=== PATIENT | female | born 1985 | race American Indian/Alaskan Native ===

== ENCOUNTER 2017-10-21 21:21 | Emergency (ER) | payer OTHER ==
[2017-10-21] MEDS ORDERED: TYLENOL PO STA (21:34)
[2017-10-21] MEDS ORDERED: NACL 0.9% 500 ML 500 ML IV ONE (21:34)
[2017-10-21] MEDS ORDERED: TYLENOL ONE (21:44)
[2017-10-21 21:49] LABS: Basophils # (Auto) 0.1 K/mm3 (0.0-0.1); Basophils % (Auto) 0.7 % (0.0-1.8); Eosinophils # (Auto) 0.1 K/mm3 (0.0-0.4); Hemoglobin 12.6 gm/dl (10.1-14.3); Lymphocytes # (Auto) 1.2 K/mm3 (1.2-5.4); Lymphocytes % (Auto) 11.8 % (13.4-35.0); Mean Corpuscular HGB Conc 33 % (30-34); Mean Corpuscular Hemoglobin 30 pg (28-32); Mean Corpuscular Volume 89 fl (79-97); Monocytes # (Auto) 0.8 K/mm3 (0.0-0.8); Monocytes % (Auto) 7.5 % (0.0-7.3); Platelet Count 219 K/mm3 (140-440); Red Blood Count 4.29 M/mm3 (3.65-5.03); Red Cell Distribution Width 14.4 % (13.2-15.2)
[2017-10-21] MEDS ORDERED: NACL 0.9% 1000 ML 1,000 ML ONE (21:53)
[2017-10-21] MEDS ORDERED: NACL 0.9% 1000 ML 1,000 ML IV ONE (21:59)
[2017-10-21 22:01] LABS: INR 1.05 (0.87-1.13)
[2017-10-21 22:05] LABS: Alanine Aminotransferase 17 units/L (7-56); Albumin 4.2 g/dL (3.9-5); BUN/Creatinine Ratio 9; Blood Urea Nitrogen 6 mg/dL (7-17); Calcium 9.3 mg/dL (8.4-10.2); Hemolysis Index 15
--- NOTE | 2017-10-21 22:14 | XRay Report ---
FINAL REPORT PROCEDURE: Chest. TECHNIQUE: Frontal and lateral views. HISTORY: Possible sepsis. COMPARISON: No prior studies are available for comparison. FINDINGS: The heart and mediastinum appear normal. The lungs are clear and well expanded. There are no pleural effusions. The soft tissues and regional skeleton are unremarkable. IMPRESSION: Normal study.
[2017-10-21 23:00] LABS: Bacteria,Urine 2+ /HPF (Negative); Bilirubin,Urine NEG (Negative); Blood,Urine NEG (Negative); Color,Urine Yellow (Yellow); Mucus,Urine FEW /HPF; Nitrite,Urine NEG (Negative); Urobilinogen,Urine < 2.0 mg/dL (<2.0)
[2017-10-22] MEDS ORDERED: MOTRIN PO ONE (01:26)
[2017-10-22] MEDS ORDERED: LEVAQUIN PO ONE (02:23)
--- NOTE | 2017-10-22 02:27 | Emergency Department Report ---
ED Fever HPI - General Chief Complaint: Fever Stated Complaint: FEVER Time Seen by Provider: 10/22/17 01:42 Source: patient Exam Limitations: no limitations - History of Present Illness Initial Comments: 32 YO FEMALE WITH FEVER, BODYACHES, EARACHE ,COUGH SINCE YESTERDAY. SHE ALSO HAD DIARRHEA LAST NIGHT AND MILD SORE THROAT. PT HAS A FEVER OF 102.9 TODAY Timing/Duration: yesterday Fever Severity/Quality: greater than 102 F Fever Therapy VISION CARE ASSOCIATE: none Associated Symptoms: cough, muscle aches, sore throat. denies: abdominal pain, headache, nausea/vomiting, stiff neck, syncope, weakness ED Review of Systems ROS: Stated complaint: FEVER Other details as noted in HPI Eyes: denies: eye pain, eye discharge, vision change ENT: denies: ear pain, throat pain Respiratory: cough. denies: shortness of breath, wheezing Cardiovascular: denies: chest pain, palpitations Endocrine: no symptoms reported Gastrointestinal: diarrhea. denies: abdominal pain, nausea, vomiting Genitourinary: denies: urgency, dysuria, discharge Musculoskeletal: denies: back pain, joint swelling, arthralgia Skin: denies: rash, lesions Neurological: denies: headache, weakness, paresthesias Psychiatric: denies: anxiety, depression Hematological/Lymphatic: denies: easy bleeding, easy bruising ED Past Medical Hx - Past Medical History Previous Medical History?: Yes - Surgical History Past Surgical History?: Yes Additional Surgical History: Tubal logation 2005 - Family History Family history: hypertension - Social History Smoking Status: Never Smoker - Medications Home Medications: Home Medications Medication Instructions Recorded Confirmed Last Taken Type Ibuprofen [Motrin] 800 mg PO Q8HR PRN #20 tablet 10/22/17 Unknown Rx Nitrofurantoin Macrocrysta(Nf) 100 mg PO BID #10 capsule 10/22/17 Unknown Rx [Macrodantin CAP] Oseltamivir [Tamiflu] 75 mg PO BID #10 capsule 10/22/17 Unknown Rx ED Physical Exam - General Limitations: No Limitations General appearance: alert, in no apparent distress - Head Head exam: Present: atraumatic, normocephalic - Eye Eye exam: Present: normal appearance, EOMI - ENT ENT exam: Present: mucous membranes moist - Expanded ENT Exam Expanded TM/Canal exam: Cerumen Impaction: Right TM - Neck Neck exam: Present: normal inspection, full ROM - Respiratory Respiratory exam: Present: normal lung sounds bilaterally. Absent: respiratory distress - Cardiovascular Cardiovascular Exam: Present: regular rate, normal rhythm. Absent: systolic murmur, diastolic murmur, rubs, gallop - GI/Abdominal GI/Abdominal exam: Present: soft, normal bowel sounds - Extremities Exam Extremities exam: Present: normal inspection - Back Exam Back exam: Present: normal inspection - Neurological Exam Neurological exam: Present: alert, oriented X3 - Psychiatric Psychiatric exam: Present: normal affect, normal mood - Skin Skin exam: Present: warm, dry, intact, normal color. Absent: rash ED Course Vital Signs 10/21/17 10/21/17 10/21/17 21:30 21:58 22:58 Temperature 102.9 F H Pulse Rate 130 H Respiratory 20 20 20 Rate Blood Pressure 148/97 O2 Sat by Pulse 99 Oximetry ED Medical Decision Making - Lab Data Result diagrams: 10/21/17 21:37 10/21/17 21:37 Critical care attestation.: If time is entered above; I have spent that time in minutes in the direct care of this critically ill patient, excluding procedure time. ED Disposition Clinical Impression: Influenza Fever Qualifiers: Fever type: unspecified Qualified Code(s): R50.9 - Fever, unspecified UTI (urinary tract infection) Qualifiers: Urinary tract infection type: acute cystitis Hematuria presence: with hematuria Qualified Code(s): N30.01 - Acute cystitis with hematuria Disposition: - TO HOME OR SELFCARE Is pt being admited?: No Does the pt Need Aspirin: No Condition: Stable Instructions: Urinary Tract Infection in Women (ED), Cerumen Impaction (ED), Influenza (ED) Additional Instructions: PLEASE FOLLOW UP WITH DR SIMON GARSIA CALL [phone] ISAI RUSSELL [phone] ABOUT YOUR EAR. PLEASE RETURN TO THE ER IF YOUR SYMPTOMS GET WORSE OR NAUSEA,VOMITING, SEVERE HEADACHE OR FOR ANY CONCERNS Prescriptions: Ibuprofen [Motrin] 800 mg PO Q8HR PRN #20 tablet PRN Reason: Fever Nitrofurantoin Macrocrysta(Nf) [Macrodantin CAP] 100 mg PO BID #10 capsule Oseltamivir [Tamiflu] 75 mg PO BID #10 capsule Referrals: TELMA LUCIANO MD [Primary Care Provider] - 3-5 Days Time of Disposition: 02:54
[2017-10-22] MEDS ORDERED: TAMIFLU PO SCH (03:00)
[2017-10-22] MEDS ORDERED: COLACE ONE (03:01)
[2017-10-22 04:26] VITALS: BP 119/79
[2017-10-22] MEDS ORDERED: COLACE PO ONE (05:38)
== END 2017-10-22 04:47 | disposition home or self-care (01) ==
LOC: ED 21:21
DX: J11.1 Influenza due to unidentified influenza virus with other respiratory manifestations (principal); N30.01 Acute cystitis with hematuria; Z98.51 Tubal ligation status
CPT/HCPCS: 36415; 71020; 80053; 81001; 82140; 82805; 85025; 85610; 87040; 87086; 87400; 93005; 93010; 96360; 96361; 99284; J7030